=== PATIENT | female | born 1945 | race African-American/Black ===

== ENCOUNTER → 2016-11-23 | Outpatient (CLI) | payer MEDICARE, MEDICAID ==
[~2016-11-23] MED LIST: AMLO5TAB88 PO; ASPI-1159 PO; CHOL500010 PO; ISOS30TA6 PO; LIP40 PO; LOSA50TA20 PO; NEBI5TAB3 PO; NITR0.4T SL; PRAS10TA6 PO; SOLI5TAB PO
== END | disposition home or self-care (01) ==
LOC: PVL 10:18
PROVIDERS: ATTEND Specialist
DX: M79.605 Pain in left leg (principal)
CPT/HCPCS: 93923

== ENCOUNTER 2018-06-25 08:07 | Day surgery (SDC) | payer MEDICARE, MEDICAID ==
[~2018-06-25] VITALS: Ht 170.2 cm; Wt 84.8 kg
[2018-06-25] MEDS ORDERED: CILO100T MT (09:12)
[2018-06-25] MEDS ORDERED: ASPIRIN/SOD BICARB/CITRIC ACID 324MG TAB EFF ONE (09:51)
[2018-06-25] MEDS ORDERED: IODIXANOL 320MG/ML 100 ML BOTTLE IV ONE (09:52)
[2018-06-25] MEDS ORDERED: LIDOCAINE HCL 1% 20ML VIAL (Pyxis) INJ ONE ×2 (09:52→11:18)
[2018-06-25] MEDS ORDERED: HEPARIN SODIUM 1,000 UNIT/1ML VIAL IV ONE (10:00)
[2018-06-25] MEDS ORDERED: NICARDIPINE 100MCG/ML 10ML VIAL (CATH LAB) IV ONE (10:00)
[2018-06-25] MEDS ORDERED: NITROGLYCERIN 50MCG/ML 10ML VIAL (CATH LAB) IV ONE (10:00)
[2018-06-25] MEDS ORDERED: MIDAZOLAM HCL 2 MG/2 ML VIAL ONE (10:03)
[2018-06-25] MEDS ORDERED: FENTANYL CITRATE/PF 50MCG/ML 2ML VIAL ONE ×2 (10:03→11:18)
[2018-06-25] MEDS ORDERED: ATROPINE SULFATE 1MG/10ML SYR IV PRN (11:30)
[2018-06-25] MEDS ORDERED: ONDANSETRON HCL 4MG/2ML INJ IV PRN (11:30)
[2018-06-25] MEDS ORDERED: ACETAMINOPHEN 325MG TABLET PO PRN (11:30)
[2018-06-25] MEDS ORDERED: MORPHINE SULFATE 4 MG/ML CPJ (NOT FOR IM USE) IV PRN (11:30)
== END 2018-06-25 17:30 | disposition home or self-care (01) ==
LOC: CCL 08:07
PROVIDERS: ATTEND Specialist
DX: I25.118 Atherosclerotic heart disease of native coronary artery with other forms of angina pectoris (principal); E78.00 Pure hypercholesterolemia, unspecified; I10 Essential (primary) hypertension; Z87.891 Personal history of nicotine dependence; Z95.5 Presence of coronary angioplasty implant and graft; C67.9 Malignant neoplasm of bladder, unspecified
CPT/HCPCS: 93005; 93458; 99152; 99153; C1760; C1769; C1887; C1893; C1894; J1644; J2250; J3010; J3490; Q9967; G0500

== ENCOUNTER → 2018-08-21 | Day surgery (SDC) | payer MEDICARE, MEDICAID ==
[~2018-08-21] MED LIST changes: -ASPI-1159 PO; +ASPI-1393 PO; +CILO100T MT; +LIDOCAINE HCL/EPINEPHRINE 1%-EPI 1:100,000 20 ML VIAL ONE; -LOSA50TA20 PO; +LOSA50TA41 PO; +SODIUM BICARBONATE 4% (2.4MEQ) 5ML VIAL IV ONE
== END | disposition home or self-care (01) ==
LOC: RAD 09:32
PROVIDERS: ATTEND Surgery
DX: C50.212 Malignant neoplasm of upper-inner quadrant of left female breast (principal)
CPT/HCPCS: 19083; 88305; A4648; J3490